=== PATIENT | female | born 1960 | race Caucasian/White ===

== ENCOUNTER 2018-09-13 10:52 | Emergency (ER) | payer OTHER ==
[~2018-09-13] VITALS: Ht 160 cm; Wt 109.5 kg
[2018-09-13 10:58] VITALS: Ht 160 cm; Wt 109.5 kg
[2018-09-13] MEDS ORDERED: DIFLUCAN150 MG PO (11:00)
[2018-09-13] MEDS ORDERED: HYDRALAZINE HCL25 MG PO (11:01)
[2018-09-13] MEDS ORDERED: ABILIFY2 MG PO (11:01)
[2018-09-13] MEDS ORDERED: GLUCOPHAGE500 MG PO (11:02)
[2018-09-13] MEDS ORDERED: ESTRACE1 MG (11:02)
[2018-09-13] MEDS ORDERED: HYDROCHLOROTHIA25 MG PO (11:02)
[2018-09-13] MEDS ORDERED: EFFEXOR100 MG PO (11:03)
[2018-09-13] MEDS ORDERED: MELATONIN 3 MG1 TAB PO (11:03)
[2018-09-13] MEDS ORDERED: PROPRANOLOL HCL20 MG PO (11:03)
[2018-09-13] MEDS ORDERED: NORVASC10 MG PO (11:04)
[2018-09-13] MEDS ORDERED: ATIVAN1 MG PO (11:04)
[2018-09-13] MEDS ORDERED: OMEPRAZOLE20 M1 PO (11:04)
[2018-09-13 11:27] LABS: BASOPHILS 0 % (0-2); EOSINOPHILS 0.1 % (0-7); HEMATOCRIT 42.4 % (36.0-48.0); HEMOGLOBIN 14.4 g/dL (12-16); IMMATURE GRANULOCYTES 0.4 % (0-5); LYMPHOCYTES 31.7 % (15-50); MCH 28.3 pg (26.0-34.0); MCV 83.3 fL (80.0-100.0); MEAN PLATELET VOLUME 10.1 fL (7.4-10.4); MONOCYTES 11.9 % (2-11); NEUTROPHILS 55.9 % (40-80); PLATELET COUNT 424 10x3/uL (130-400); RBC 5.09 10x6/uL (4.00-5.40); RDW 13.3 % (11.5-14.5); WBC 13.1 10x3/uL (4.8-10.8)
[2018-09-13 11:43] LABS: KETONE - SERUM NEGATIVE (NEGATIVE)
[2018-09-13 11:55] LABS: APPEARANCE HAZY (CLEAR); COLOR YELLOW (YELLOW)
[2018-09-13 11:56] LABS: ALBUMIN 3.5 g/dL (3.4-5.0); ALKALINE PHOSPHATASE 164 U/L (46-116); ALT (SGPT) 60 U/L (10-68); CALC OSMOLALITY 279 mosm/kg (275-300); CALCIUM 9.5 mg/dL (8.5-10.1); CARBON DIOXIDE 28.7 mmol/L (21.0-32.0); CHLORIDE - SERUM 91 mmol/L (98-107); CREATININE - SERUM 1.1 mg/dL (0.6-1.3); MAGNESIUM - SERUM 1.8 mg/dL (1.8-2.4); POTASSIUM - SERUM 3.5 mmol/L (3.5-5.1); PROTEIN - SERUM 7.8 g/dL (6.4-8.2); SODIUM 131 mmol/L (136-145); THYROID STIMULATING HORMONE 2.34 uIU/mL (0.36-3.74); UREA NITROGEN 11 mg/dL (7-18); eGFR NON AFRICAN AMERICAN 54 mL/min (90-120)
[2018-09-13 11:57] LABS: BILIRUBIN NEGATIVE (NEGATIVE); GLUCOSE 1000 mg/dL (NEGATIVE); KETONE MODERATE mg/dL (NEGATIVE); NITRITE NEGATIVE (NEGATIVE); PROTEIN TRACE mg/dL (NEGATIVE)
[2018-09-13 11:58] LABS: BACTERIA MANY /hpf (NONE SEEN); EPITHELIAL CELLS 0-5 /hpf (0-5); MUCUS <1+ /lpf (NONE SEEN)
[2018-09-13 12:06] LABS: GLUCOSE 415 mg/dL (74-106)
[2018-09-13 15:30] VITALS: BP 138/89
== END 2018-09-13 15:30 | disposition home or self-care (01) ==
LOC: D.ER 10:52
PROVIDERS: Family Medicine
DX: E11.65 Type 2 diabetes mellitus with hyperglycemia (principal); I10 Essential (primary) hypertension; K21.9 Gastro-esophageal reflux disease without esophagitis